=== PATIENT | female | born 1995 | race Two or more races ===

== ENCOUNTER 2016-12-16 11:20 | Observation (INO) | payer MEDICAID ==
[~2016-12-16] VITALS: Ht 152.4 cm; Wt 63.5 kg
[2016-12-16] MEDS ORDERED: LACTATED RINGER'S 1,000 ML IV SCH (12:14)
[2016-12-16 12:37] LABS: Urine Bilirubin Negative (Negative); Urine Blood Negative /uL (Negative); Urine Color Yellow (Yellow); Urine Glucose Normal (Normal); Urine Ketone Negative (Negative); Urine Nitrite Negative (Negative); Urine RBC <1 /hpf (0 - 4); Urine Squamous Epithelial Cell FEW /hpf (<5); Urine Urobilinogen Normal (Negative)
[2016-12-16 13:21] LABS: Albumin 2.5 g/dL (3.4-5.0); BUN/Creatinine Ratio 8.1; Calcium 8.4 mg/dL (8.5-10.1); Potassium 3.7 mmol/L (3.5-5.1)
[2016-12-16 13:24] LABS: Bilirubin, Total 0.6 mg/dL (0.2-1.0); Total Protein 6.4 g/dL (6.4-8.2)
[2016-12-16 13:26] LABS: Basophils # (auto) 0 uL; DEFINITIVE VIEW TRANSMISSION; Eosinophils # (auto) 0 uL; Eosinophils % (auto) 0.2 % (0.0-7.0); Hemoglobin 7.1 g/dL (12.2-16.2); Lymphocytes # (auto) 1.6 uL; Lymphocytes % (auto) 14.1 % (10.0-50.0); Mean Corpuscular Hgb Conc. 29.4 g/dL (32.0-36.0); Mean Corpuscular Volume 64.7 fL (80.0-100.0); Mean Platelet Volume 13.7 fL (7.4-10.4); Monocytes # (auto) 0.9 uL; Monocytes % (auto) 8.2 % (0.0-12.0); Neutrophils # (auto) 8.5 uL; Neutrophils % (auto) 77.5 % (37.0-80.0); Platelet Count (auto) 176 10^3/uL (140-450); Red Cell Distribution Width 17.9 % (11.6-16.0); SUSPECT VIEW TRANSMISSION
[2016-12-16 13:34] LABS: INR 0.96 (0.9-1.15); Prothrombin Time 9.9 sec (9.37-12.3)
[2016-12-16 14:31] LABS: Giant Platelets Few; Hypochromia Marked; Microcytosis Marked; Ovalocytes FEW; Platelet Estimate Adequate
[2016-12-16 14:32] LABS: Large Platelets FEW; Tear Drop Cells FEW
[2016-12-16 15:15] VITALS: BP 129/61
[2016-12-16 15:30] VITALS: BP 124/68
[2016-12-16 16:06] VITALS: BP 119/57
[2016-12-16 17:40] VITALS: BP 125/64
[2016-12-16 22:40] LABS: Basophils # (auto) 0 uL; Basophils % (auto) 0.1 % (0.0-2.0); DEFINITIVE VIEW TRANSMISSION; Eosinophils # (auto) 0.1 uL; Eosinophils % (auto) 0.5 % (0.0-7.0); Hemoglobin 9.6 g/dL (12.2-16.2); Lymphocytes # (auto) 2.4 uL; Lymphocytes % (auto) 24.5 % (10.0-50.0); Mean Corpuscular Hemoglobin 22.1 pg (28.0-32.0); Mean Corpuscular Hgb Conc. 31.1 g/dL (32.0-36.0); Mean Corpuscular Volume 70.9 fL (80.0-100.0); Mean Platelet Volume 13.4 fL (7.4-10.4); Monocytes # (auto) 1.1 uL; Monocytes % (auto) 11.1 % (0.0-12.0); Neutrophils # (auto) 6.1 uL; Neutrophils % (auto) 63.8 % (37.0-80.0); Platelet Count (auto) 164 10^3/uL (140-450); SUSPECT VIEW TRANSMISSION; White Blood Cell 9.6 10^3/uL (4.4-10.8)
[2016-12-16 22:46] LABS: Red Cell Distribution Width 24.3 % (11.6-16.0)
[2016-12-16 23:40] LABS: Anisocytosis Moderate; Hypochromia Moderate; Large Platelets FEW; Microcytosis Moderate; Ovalocytes FEW; Platelet Estimate Adequate
== END 2016-12-16 22:23 | disposition home or self-care (01) | DRG 566 ==
LOC: LDRP 11:20
PROVIDERS: ADMIT Obstetrics & Gynecology; ATTEND Obstetrics & Gynecology
DX: O26.893 Other specified pregnancy related conditions, third trimester (principal); R10.9 Unspecified abdominal pain; O99.013 Anemia complicating pregnancy, third trimester; Z3A.37 37 weeks gestation of pregnancy
CPT/HCPCS: 36415; 59025; 76805; 80053; 81001; 81002; 85025; 85610; 85730; 86592; 86703; 86762; 86850; 86900; 86901; 86920; 87340; G0378; G0434; J7050; P9016; 36430; 96365; 96366

== ENCOUNTER 2016-12-28 12:00 | Observation (INO) | payer MEDICAID | END 2016-12-28 13:20 | disposition home or self-care (01) | DRG 566 | LOC: LDRP 12:00 | PROVIDERS: ADMIT Obstetrics & Gynecology; ATTEND Obstetrics & Gynecology | DX: O26.893 Other specified pregnancy related conditions, third trimester (principal); Z3A.39 39 weeks gestation of pregnancy | CPT/HCPCS: 59025; 76818; 81002; G0378 ==

== ENCOUNTER 2017-01-02 11:25 | Observation (INO) | payer MEDICAID | END 2017-01-02 12:50 | disposition home or self-care (01) | DRG 566 | LOC: LDRP 11:25 | PROVIDERS: ADMIT Obstetrics & Gynecology; ATTEND Obstetrics & Gynecology | DX: O26.893 Other specified pregnancy related conditions, third trimester (principal); O48.0 Post-term pregnancy; Z3A.40 40 weeks gestation of pregnancy; R10.30 Lower abdominal pain, unspecified | CPT/HCPCS: 76818; G0378; 59025; 81002 ==

== ENCOUNTER 2017-01-04 19:20 | Observation (INO) | payer MEDICAID | END 2017-01-04 21:08 | disposition home or self-care (01) | DRG 566 | LOC: LDRP 19:20 | PROVIDERS: ADMIT Specialist; ATTEND Specialist | DX: O48.0 Post-term pregnancy (principal); Z3A.40 40 weeks gestation of pregnancy | CPT/HCPCS: 59025; 76818; 81002; G0378 ==

== ENCOUNTER 2017-01-07 19:34 | Inpatient (IN) | payer MEDICAID ==
[~2017-01-07] VITALS: Ht 152.4 cm; Wt 60.8 kg
[2017-01-07] MEDS ORDERED: LACTATED RINGER'S 1,000 ML IV SCH (20:12)
[2017-01-07] MEDS ORDERED: LACT. RINGERS/OXYTOCIN 20UNITS 1,000 ML IV SCH (20:12)
[2017-01-07] MEDS ORDERED: PENICILLIN G POT 5MIL/D5 50ML 50 ML IV ONE (20:15)
[2017-01-07] MEDS ORDERED: DERMOPLAST 60ML BOTTLE TOP PRN (20:15)
[2017-01-07] MEDS ORDERED: PHISODERM TOP SOLN 240ML BTL TOP PRN (20:15)
[2017-01-07] MEDS ORDERED: LIDOCAINE 2%HCL (LOCAL ANESTH.) INJ 20ML MDV IJ PRN (20:15)
[2017-01-07] MEDS ORDERED: METHYLERGONOVINE MALEATE 0.2 MG/ML AMP IM PRN (20:15)
[2017-01-07] MEDS ORDERED: WITCH HAZEL-GLYCERIN PAD TOP PRN (20:15)
[2017-01-07] MEDS ORDERED: PROMETHAZINE HCL 25 MG/ML 1ML IV PRN (20:15)
[2017-01-07] MEDS ORDERED: NALBUPHINE HCL 10 MG/1ml INJECTION IV PRN (20:15)
[2017-01-07 20:49] LABS: Basophils # (auto) 0.1 uL; Basophils % (auto) 0.7 % (0.0-2.0); DEFINITIVE VIEW TRANSMISSION; Eosinophils # (auto) 0 uL; Eosinophils % (auto) 0.4 % (0.0-7.0); Hematocrit 32.2 % (36.0-46.0); Hemoglobin 10.5 g/dL (12.2-16.2); Lymphocytes # (auto) 2.5 uL; Lymphocytes % (auto) 25.1 % (10.0-50.0); Mean Corpuscular Hemoglobin 23.4 pg (28.0-32.0); Mean Corpuscular Hgb Conc. 32.8 g/dL (32.0-36.0); Mean Corpuscular Volume 71.4 fL (80.0-100.0); Mean Platelet Volume 13.2 fL (7.4-10.4); Monocytes # (auto) 0.9 uL; Monocytes % (auto) 9.2 % (0.0-12.0); Neutrophils # (auto) 6.6 uL; Neutrophils % (auto) 64.6 % (37.0-80.0); Platelet Count (auto) 192 10^3/uL (140-450); SUSPECT VIEW TRANSMISSION; White Blood Cell 10.1 10^3/uL (4.4-10.8)
[2017-01-07 21:04] LABS: Urine Bilirubin Negative (Negative); Urine Blood TRACE /uL (Negative); Urine Color Yellow (Yellow); Urine Glucose Normal (Normal); Urine Ketone Negative (Negative); Urine Nitrite Negative (Negative); Urine RBC <1 /hpf (0 - 4); Urine Squamous Epithelial Cell FEW /hpf (<5); Urine Urobilinogen Normal (Negative); Urine pH 6.5 (5.0-8.0)
[2017-01-07 21:16] LABS: INR 0.96 (0.9-1.15); Partial Thromboplastin Time 26.1 sec (22.64-33.71); Prothrombin Time 9.9 sec (9.37-12.3)
[2017-01-07 21:19] LABS: Albumin 2.9 g/dL (3.4-5.0); BUN/Creatinine Ratio 12.5; Bilirubin, Total 0.5 mg/dL (0.2-1.0); Calcium 8.8 mg/dL (8.5-10.1); Potassium 4.5 mmol/L (3.5-5.1); Red Cell Distribution Width 28.1 % (11.6-16.0)
[2017-01-07 22:00] LABS: Anisocytosis Moderate; Hypochromia Slight; Large Platelets FEW; Platelet Estimate Adequate
[2017-01-07] MEDS ORDERED: ePHEDrine SULFATE 50 MG/ML AMP IV ONE (22:00)
[2017-01-07] MEDS ORDERED: fentaNYL W ROPIVACAINE 150 ML EPI SCH (22:00)
[2017-01-07] MEDS ORDERED: LIDOCAINE HCL 2 %PF INJ 10ML AMP IJ ONE (22:00)
[2017-01-07] MEDS ORDERED: fentaNYL CITRATE 100 MCG/2 ML VL IV ONE (22:00)
[2017-01-07] MEDS ORDERED: NALOXONE HCL 0.4 MG/ML VIAL IV ONE (22:00)
[2017-01-07] MEDS ORDERED: ACETAMINOPHEN 325 MG TAB PO PRN (23:30)
[2017-01-08] VITALS (7 sets, daily range): BP systolic 105–129; BP diastolic 56–80
[2017-01-08] MEDS: IBUPROFEN 600 MG TAB PO PRN ×3 (00:05→23:11)
[2017-01-08] MEDS ORDERED: PENICILLIN G POTASSIUM 2,500,000 UNITS in D5W 5% 50 ML IV SCH (00:15)
[2017-01-08] MEDS ORDERED: LACT. RINGERS/OXYTOCIN 20UNITS 1,000 ML IV SCH (00:18)
[2017-01-08] MEDS ORDERED: PRENCAP61 PO (08:07)
[2017-01-09 03:00] VITALS: BP 100/52
[2017-01-09 08:00] VITALS: BP 116/56
[2017-01-09 10:20] VITALS: BP 116/56
== END 2017-01-09 10:20 | disposition home or self-care (01) | DRG 560 ==
LOC: OBSVTOIN 19:34 → LDRP 19:34
PROVIDERS: ADMIT Specialist; ATTEND Specialist
PROC: 10E0XZZ Delivery of Products of Conception, External Approach (ICD-10-PCS; principal; 2017-01-07)
DX: O99.824 Streptococcus B carrier state complicating childbirth (principal); O69.81X0 Labor and delivery complicated by cord around neck, without compression, not applicable or unspecified; O71.82 Other specified trauma to perineum and vulva; Z37.0 Single live birth; Z3A.40 40 weeks gestation of pregnancy; O09.33 Supervision of pregnancy with insufficient antenatal care, third trimester
CPT/HCPCS: 36415; 59025; 80053; 81001; 81002; 85025; 85610; 85730; 86850; 86900; 86901; 96365; 96366; G0378; J2540; J2590; J3010; J7060